=== PATIENT | male | born 1990 | race Caucasian/White ===

== ENCOUNTER 2016-11-21 18:25 | Emergency (ER) | payer SELFPAY ==
[~2016-11-21] VITALS: Ht 167.6 cm; Wt 61.2 kg
[2016-11-21 19:14] VITALS: BP 128/44
--- NOTE | 2016-11-21 20:50 | NUR ---
Patient being evaluated by physician.
[2016-11-21] MEDS ORDERED: IBUPROFEN 600 MG TAB PO ONE (21:00)
[2016-11-21] MEDS ORDERED: ACETAMINOPHEN/CODEINE 300/30MG 1 TAB PO ONE (21:00)
[2016-11-21 22:05] VITALS: BP 117/62
--- NOTE | 2016-11-21 22:05 | NUR ---
Patient discharged with v/s stable. Written and verbal after care instructions given and explained. Patient alert, oriented and verbalized understanding of instructions. Ambulatory with steady gait. All questions addressed prior to discharge. ID band removed. Patient advised to follow up with PMD. Rx of Tylenol #3 and Naproxen given. Patient educated on indication of medication including possible reaction and side effects. Opportunity to ask questions provided and answered.
== END 2016-11-21 22:05 | disposition home or self-care (01) ==
LOC: MED 18:25
DX: S62.231A Other displaced fracture of base of first metacarpal bone, right hand, initial encounter for closed fracture (principal); X58.XXXA Exposure to other specified factors, initial encounter; Y93.89 Activity, other specified; Y92.89 Other specified places as the place of occurrence of the external cause; Y99.8 Other external cause status
CPT/HCPCS: 73130; 99284